=== PATIENT | male | born 1960 | race Hispanic/Latino ===

== ENCOUNTER 2018-03-07 09:21 | Day surgery (SDC) | payer MEDICAID ==
[2018-03-07] MEDS ORDERED: NACL 0.9% 1000 ML 1,000 ML IV SCH (10:00)
[2018-03-07] MEDS ORDERED: DECADRON ONE (10:18)
[2018-03-07] MEDS ORDERED: ZOFRAN ONE (10:18)
[2018-03-07] MEDS ORDERED: VERSED ONE (10:18)
[2018-03-07] MEDS ORDERED: XYLOCAINE 2% INFILTRATI ONE (10:19)
[2018-03-07] MEDS ORDERED: DIPRIVAN 10 MG/ML IV ONE (10:19)
[2018-03-07] MEDS ORDERED: AMIDATE IV ONE (10:19)
[2018-03-07] MEDS ORDERED: WATER FOR IRRIG STERILE ONE (10:34)
--- NOTE | 2018-03-07 11:20 | Procedure Note ---
Date of procedure: 03/07/18 Pre-op diagnosis: Colon Polyp Screenings Post-op diagnosis: other (Colon Polyps (two in the Recto-sigmoid area) and one in the Descending Colon.) Procedure: Colonoscopy with Snare Polypectomy (heat applied) and Cold Biopsy Anesthesia: MAC Surgeon: CHRIS BARRETO Estimated blood loss: minimal Pathology: list Specimen disposition: to lab Condition: stable Disposition: same day (Avoid aspirin and NSAID and 5 days and follow up in 1 to 2 weeks ([phone]).)
--- NOTE | 2018-03-07 11:38 | Anesthesia Day of Surgery ---
Anesthesia Day of Surgery - Day of Surgery Patient Examined: Yes Patient H&P Reviewed: Yes Patient is NPO: Yes Beta Blockers: No
--- NOTE | 2018-03-07 11:43 | Anesthesia Consultation ---
Anesthesia Consult and Med Hx - Airway Anesthetic Teeth Evaluation: Good ROM Head & Neck: Adequate Mental/Hyoid Distance: Adequate Mallampati Class: Class III Intubation Access Assessment: Good - Pulmonary Exam CTA: No (crackle and Rhonchi) - Cardiac Exam Cardiac Exam: No Murmur - Pre-Operative Health Status ASA Pre-Surgery Classification: ASA4 Proposed Anesthetic Plan: MAC - Pulmonary Hx Smoking: Yes COPD: Yes - Cardiovascular System Hx Hypertension: Yes Hx Coronary Artery Disease: Yes Hx Heart Murmur: Yes - Endocrine Hx Renal Disease: Yes (STAGE 3)
[2018-03-07 11:46] VITALS: BP 154/74
--- NOTE | 2018-03-07 11:54 | Operative Report ---
COLONOSCOPY INDICATIONS: This is a 57-year-old white male with an underlying history of hypertension, gout, chronic pain who had a colonoscopy done as part of colon polyp screening. The patient was never said to have had a colonoscopy done previously. DESCRIPTION OF PROCEDURE: Procedure was done after getting informed consent with MAC anesthesia. Initial rectal exam was unremarkable. Instrument was passed through the rectum onto the cecum, which was identified with ileocecal valve and appendiceal orifice. Terminal ileum was intubated, showed normal mucosa. The cecum, ascending colon appeared normal. The scope was introduced up to the distal ascending colon and reintroduced and retroflexed. No additional pathology was noted. The transverse colon likewise showed normal mucosa as did most of the descending colon. In the distal descending colon close to the sigmoid, there was a 7-8 mm sessile polyp noted that was removed by cold biopsy. In the rectosigmoid area, there were 2 polyps noted, one was a 10 mm sessile polyp that was removed by snare excision using heat and retrieved. The other was 8 mm polyp, removed by cold biopsy and the rectum showed minor internal hemorrhoid on the retroverted view. There was minimal bleeding from the polypectomy and biopsy sites and no complications associated with the procedure. There was no diverticular disease noted. No evidence of any colitis. ASSESSMENT: Colon polyp screening, multiple colon polyps noted in the rectosigmoid and in the descending colon, minor internal hemorrhoid. Again, there was minimal bleeding from the biopsy sites. No complications associated with the procedure. No diverticular disease or evidence of coli. Endoscopic evidence of colitis noted. The patient will be asked to avoid aspirin and aspirin-related products for the next few days and follow up in the office in 1-2 weeks' time. RN, Camryn Herman, was in the room throughout the entirety of the procedure. Thank you for the kind referral. JOB# [id number] BONNEI/FRANKIE
== END 2018-03-07 09:22 | disposition home or self-care (01) ==
LOC: GIO 09:21
DX: Z12.11 Encounter for screening for malignant neoplasm of colon (principal); K63.5 Polyp of colon; K64.8 Other hemorrhoids; I12.9 Hypertensive chronic kidney disease with stage 1 through stage 4 chronic kidney disease, or unspecified chronic kidney disease; N18.3 Chronic kidney disease, stage 3 (moderate); J44.9 Chronic obstructive pulmonary disease, unspecified; F17.210 Nicotine dependence, cigarettes, uncomplicated; I25.10 Atherosclerotic heart disease of native coronary artery without angina pectoris; Z98.890 Other specified postprocedural states; Z79.899 Other long term (current) drug therapy; Z79.01 Long term (current) use of anticoagulants; Z88.8 Allergy status to other drugs, medicaments and biological substances
CPT/HCPCS: 45380; 45385; 88305; J1100; J2250; J2405; J2704; J7030